=== PATIENT | male | born 1940 | race Caucasian/White ===

== ENCOUNTER 2016-09-27 10:40 | Day surgery (SDC) | payer OTHER ==
[~2016-09-27] VITALS: Ht 177.8 cm; Wt 90.7 kg
[~2016-09-27 10:40] MED LIST: ELAVIL25 MG PO; FLOVENT 11120 INHALA IH; JANUVIA100 MG PO; OMEPRAZOLE40 M1 PO; OXYCODONE HCL10 MG PO; TOLTERODINE TART4 MG PO; ZOCOR40 MG PO; ZOLOFT50 MG PO
[2016-09-27 11:10] LABS: POINT-OF-CARE METER ID UU14174212
[2016-09-29] MEDS ORDERED: MULTIPLE VITAM1 EACH PO (15:17)
[2016-09-29] MEDS ORDERED: DETROL LA4 MG PO (15:17)
[2016-09-29] MEDS ORDERED: TRAZODONE HCL50 MG PO (15:31)
== END 2016-09-27 12:10 | disposition home or self-care (01) ==
LOC: PAIN 10:40 → SDC 11:30 → PAIN 12:10
PROVIDERS: Allergy & Immunology
DX: M47.896 Other spondylosis, lumbar region (principal); M51.36 Other intervertebral disc degeneration, lumbar region; F41.1 Generalized anxiety disorder; E11.9 Type 2 diabetes mellitus without complications; R42 Dizziness and giddiness; E78.5 Hyperlipidemia, unspecified; N40.0 Benign prostatic hyperplasia without lower urinary tract symptoms
CPT/HCPCS: 82948; J1030; J2250; J3010; S0020

== ENCOUNTER 2016-10-04 08:06 | Day surgery (SDC) | payer OTHER ==
[~2016-10-04] VITALS: Ht 177.8 cm; Wt 90.7 kg
[~2016-10-04 08:06] MED LIST changes: +DETROL LA4 MG PO; +MULTIPLE VITAM1 EACH PO; +TRAZODONE HCL50 MG PO
[2016-10-04 08:40] LABS: POINT-OF-CARE METER ID UU14174212
== END 2016-10-04 10:00 | disposition home or self-care (01) ==
LOC: PAIN 08:06 → SDC 08:45 → PAIN 09:00
PROVIDERS: Anesthesiology Pain Medicine
PROC: 3E0T3CZ (ICD-10-PCS; principal; 2016-10-04)
PROC: 3E0T33Z Introduction of Anti-inflammatory into Peripheral Nerves and Plexi, Percutaneous Approach (ICD-10-PCS; principal; 2016-10-04)
DX: M47.816 Spondylosis without myelopathy or radiculopathy, lumbar region (principal); F41.9 Anxiety disorder, unspecified; M54.5 Low back pain; J45.909 Unspecified asthma, uncomplicated
CPT/HCPCS: 82948; J1030; J2250; J3010; S0020

== ENCOUNTER 2016-12-27 13:41 | Day surgery (SDC) | payer OTHER ==
[~2016-12-27] VITALS: Ht 177.8 cm; Wt 90.7 kg
[2016-12-27 14:23] LABS: POINT-OF-CARE METER ID UU14174212
== END 2016-12-27 15:44 | disposition home or self-care (01) ==
LOC: PAIN 13:41 → SDC 15:00 → PAIN 15:44
PROVIDERS: Anesthesiology Pain Medicine
PROC: 015B3ZZ Destruction of Lumbar Nerve, Percutaneous Approach (ICD-10-PCS; principal; 2016-12-27)
DX: M47.816 Spondylosis without myelopathy or radiculopathy, lumbar region (principal); F41.9 Anxiety disorder, unspecified; M51.36 Other intervertebral disc degeneration, lumbar region; M79.1 Myalgia; J45.909 Unspecified asthma, uncomplicated; G89.29 Other chronic pain; M54.5 Low back pain; E78.5 Hyperlipidemia, unspecified; D50.9 Iron deficiency anemia, unspecified; E11.65 Type 2 diabetes mellitus with hyperglycemia; Z87.891 Personal history of nicotine dependence
CPT/HCPCS: 82948; J1030; J2250; J3010; S0020

== ENCOUNTER 2017-01-03 14:10 | Day surgery (SDC) | payer OTHER ==
[~2017-01-03] VITALS: Ht 177.8 cm; Wt 90.7 kg
[2017-01-03 14:49] LABS: POINT-OF-CARE METER ID UU14174212
== END 2017-01-03 15:49 | disposition home or self-care (01) ==
LOC: PAIN 14:10 → SDC 15:00 → PAIN 15:49
PROVIDERS: Anesthesiology Pain Medicine
DX: M47.816 Spondylosis without myelopathy or radiculopathy, lumbar region (principal); M54.5 Low back pain; G89.29 Other chronic pain; M51.36 Other intervertebral disc degeneration, lumbar region; M79.1 Myalgia; J45.909 Unspecified asthma, uncomplicated; E11.9 Type 2 diabetes mellitus without complications; E78.5 Hyperlipidemia, unspecified; D50.9 Iron deficiency anemia, unspecified; E66.9 Obesity, unspecified; Z87.891 Personal history of nicotine dependence; Z79.891 Long term (current) use of opiate analgesic; Z79.899 Other long term (current) drug therapy
CPT/HCPCS: 82948; J1030; J2250; J3010; S0020